=== PATIENT | female | born 1995 ===

== ENCOUNTER 2020-10-19 20:27 | Emergency (ER) | payer MEDICAID ==
--- NOTE | 2020-10-19 21:28 | Emergency Department Report ---
ED Female HPI - General Stated complaint: 7WKS PREG/BLEEDING Time Seen by Provider: 10/19/20 21:05 - History of Present Illness MD Complaint: vaginal bleeding, dysuria, pelvic pain -: Gradual Location: suprapubic Radiation: non-radiating Severity: mild Quality: cramping Consistency: constant Are you Now?: Yes Associated Symptoms: vaginal bleeding. denies: dysuria, hematuria, shortness of breath, syncope ED Review of Systems ROS: Stated complaint: 7WKS PREG/BLEEDING Other details as noted in HPI Comment: All other systems reviewed and negative ED Physical Exam - General General appearance: alert, in no apparent distress - Head Head exam: Present: atraumatic, normocephalic - Eye Eye exam: Present: normal appearance - ENT ENT exam: Present: mucous membranes moist - Neck Neck exam: Present: normal inspection - Respiratory Respiratory exam: Present: normal lung sounds bilaterally. Absent: respiratory distress - Cardiovascular Cardiovascular Exam: Present: regular rate, normal rhythm. Absent: systolic murmur, diastolic murmur, rubs, gallop - GI/Abdominal GI/Abdominal exam: Present: soft, tenderness, normal bowel sounds - Extremities Exam Extremities exam: Present: normal inspection - Back Exam Back exam: Present: normal inspection - Neurological Exam Neurological exam: Present: alert, oriented X3 - Psychiatric Psychiatric exam: Present: normal affect, normal mood - Skin Skin exam: Present: warm, dry, intact, normal color. Absent: rash ED Medical Decision Making - Lab Data Result diagrams: 10/19/20 21:49 - Radiology Data Radiology results: report reviewed [facility] [address] [place] [address] Ultrasound Report Signed Patient: CYNTHIA HERNANDEZ MR#: [id number] 9 : 1995 Acct:[id number] Age/Sex: 25 / F ADM Date: 10/19/20 Loc: ED Attending Dr: Ordering Physician: SANDRA CASIANO Date of Service: 10/19/20 Procedure(s): US OB transvaginal Accession Number(s): [id number] cc: SANDRA CASIANO ULTRASOUND OBSTETRIC INDICATION / CLINICAL INFORMATION: 7 weeks with pelvic pain and bleeding. Clinical Gestational Age (GA) in weeks, days: 7 weeks 5 days TECHNIQUE: Transabdominal and Transvaginal. COMPARISON: None available. FINDINGS: GESTATIONAL SAC: Well-defined oval shape and intrauterine in location. YOLK SAC: No significant abnormality. EMBRYO/FETUS: No significant abnormality. - [place]-Rump Length = 0.9 cm = 7, 0 weeks, days - Heart Rate, beats per minute (if present) = 143 ADNEXA: Surgically absent right ovary. No left adnexal abnormality. FREE FLUID: None. ADDITIONAL FINDINGS: None. IMPRESSION: 1. Single, living intrauterine with estimated sonographic age of 7 weeks 0 days. Signer Name: Shyam Montoya MD Signed: 10/19/2020 10:14 PM Workstation Name: [id number] Transcribed By: SB Dictated By: SHYAM MONTOYA MD Electronically Authenticated By: SHYAM MONTOYA MD Signed Date/Time: 10/19/202213 DD/ 11 TD/TT: - Medical Decision Making this 25-year-old patient presents with vaginal bleeding in the first trimester, differential diagnosis includes ectopic , IUP, month threatened/inevitable , along with a completed . Patient is HDS and without a history of coagulopathy or infectious symptoms. The ultrasound does reveal an IUP at 7 weeks with an elevated hCG quant Based on exam history and ED work-up patient presentation is not consistent with an ectopic , life-threatening coagulopathy, trauma, serious bacterial infection, central process or other emergency Critical care attestation.: If time is entered above; I have spent that time in minutes in the direct care o f this critically ill patient, excluding procedure time. ED Disposition Clinical Impression: Vaginal bleeding during Disposition: 01 HOME / SELF CARE / HOMELESS Is pt being admited?: No Does the pt Need Aspirin: No Condition: Stable Instructions: Threatened Miscarriage, Vaginal Bleeding During , First Trimester Additional Instructions: To be sure to follow-up with your NURSING CARE ATTENDANT Referrals: [facility] [Primary Care Provider] - 3-5 Days [facility] [Provider Group] - 3-5 Days
[2020-10-19 22:15] LABS: Basophils # (Auto) 0.1 K/mm3 (0.0-0.1); Basophils % (Auto) 0.5 % (0.0-1.8); Eosinophils # (Auto) 0.1 K/mm3 (0.0-0.4); Eosinophils % (Auto) 1.1 % (0.0-4.3); Hematocrit 41.4 % (30.3-42.9); Hemoglobin 14.2 gm/dl (10.1-14.3); Lymphocytes # (Auto) 3.1 K/mm3 (1.2-5.4); Lymphocytes % (Auto) 25.2 % (13.4-35.0); Mean Corpuscular HGB Conc 34 % (30-34); Mean Corpuscular Volume 88 fl (79-97); Monocytes # (Auto) 1.2 K/mm3 (0.0-0.8); Monocytes % (Auto) 9.7 % (0.0-7.3); Platelet Count 271 K/mm3 (140-440); Red Blood Count 4.69 M/mm3 (3.65-5.03); Red Cell Distribution Width 13.6 % (13.2-15.2)
--- NOTE | 2020-10-19 22:18 | Ultrasound Report ---
ULTRASOUND OBSTETRIC INDICATION / CLINICAL INFORMATION: 7 weeks with pelvic pain and bleeding. Clinical Gestational Age (GA) in weeks, days: 7 weeks 5 days TECHNIQUE: Transabdominal and Transvaginal. COMPARISON: None available. FINDINGS: GESTATIONAL SAC: Well-defined oval shape and intrauterine in location. YOLK SAC: No significant abnormality. EMBRYO/FETUS: No significant abnormality. - [place]-Rump Length = 0.9 cm = 7, 0 weeks, days - Heart Rate, beats per minute (if present) = 143 ADNEXA: Surgically absent right ovary. No left adnexal abnormality. FREE FLUID: None. ADDITIONAL FINDINGS: None. IMPRESSION: 1. Single, living intrauterine with estimated sonographic age of 7 weeks 0 days. Signer Name: Shyam Montoya MD Signed: 10/19/2020 10:14 PM Workstation Name: [id number]
--- NOTE | 2020-10-19 22:18 | Ultrasound Report ---
ULTRASOUND OBSTETRIC INDICATION / CLINICAL INFORMATION: 7 weeks with pelvic pain and bleeding. Clinical Gestational Age (GA) in weeks, days: 7 weeks 5 days TECHNIQUE: Transabdominal and Transvaginal. COMPARISON: None available. FINDINGS: GESTATIONAL SAC: Well-defined oval shape and intrauterine in location. YOLK SAC: No significant abnormality. EMBRYO/FETUS: No significant abnormality. - [place]-Rump Length = 0.9 cm = 7, 0 weeks, days - Heart Rate, beats per minute (if present) = 143 ADNEXA: Surgically absent right ovary. No left adnexal abnormality. FREE FLUID: None. ADDITIONAL FINDINGS: None. IMPRESSION: 1. Single, living intrauterine with estimated sonographic age of 7 weeks 0 days. Signer Name: Shyam Montoya MD Signed: 10/19/2020 10:14 PM Workstation Name: [id number]
[2020-10-19 22:49] LABS: Bilirubin,Urine NEG (Negative); Blood,Urine SM (Negative); Color,Urine Yellow (Yellow); Hyaline Casts,Urine 1 /LPF; Mucus,Urine FEW /HPF; Protein,Urine <15 mg/dL mg/dL (Negative)
[2020-10-20 00:38] VITALS: BP 113/64
[2020-10-20] MEDS ORDERED: ONDANSETRON 4 MG/2 ML INJ ONE (12:24)
[2020-10-20] MEDS ORDERED: SODIUM CHLORIDE 0.9% 1000 ML 1,000 ML ONE (12:24)
== END 2020-10-20 00:30 | disposition home or self-care (01) ==
LOC: ED 20:27
DX: O20.8 Other hemorrhage in early pregnancy (principal); Z3A.01 Less than 8 weeks gestation of pregnancy
CPT/HCPCS: 36415; 76801; 76817; 81001; 84702; 85025; 99284; J2405; J7030